=== PATIENT | female | born 1950 | race Caucasian/White ===

== ENCOUNTER 2020-04-24 13:50 | Outpatient (CLI) | payer MEDICARE, OTHER, SELFPAY ==
--- NOTE | 2020-04-24 13:57 | XR_ITS ---
WS: [id number] SCREENING DEXA SCAN [employer] CLINICAL INFORMATION: POSTMENOPAUSAL COMPARISON: 018 FINDINGS: The L1-L4 bone mineral density measures 1.166 g/cm2. This corresponds to a T score score of -0.1 and Z score of 1.9. Left femoral neck bone mineral density measures 0.801 g/cm2. This corresponds to a T score of -1.6 an d Z score of 0.0. Right femoral neck bone mineral density measures 0.791 g/cm2. This corresponds to a T score -1.7of an d Z score of 0.0. Mean femoral neck bone mineral density measures 0.796 g/cm2. This corresponds to a T score of -1.7 an d Z score of 0.0. XR/XR DEXA axial skeleton* [id number] IMPRESSION: Osteopenia. Patient's FRAX calculated 10 year probability for major osteoporotic fracture i s 10.5 % and osteoporotic hip fracture is 2.0%.
== END 2020-04-24 13:51 | disposition home or self-care (01) ==
LOC: RADWPI 13:57
PROVIDERS: Family Provider Family Medicine; PCP Family Medicine; Visit Provider Family Medicine
DX: Z78.0 Asymptomatic menopausal state (principal); M85.89 Other specified disorders of bone density and structure, multiple sites
CPT/HCPCS: 77080

== ENCOUNTER 2021-07-15 15:11 | Emergency (ER) | payer MEDICARE, OTHER, SELFPAY ==
[2021-07-15 15:32] VITALS: BP 153/72; RESP 20; TEMP 36.9; O2SAT 98; BMI 21.2
--- NOTE | 2021-07-15 17:42 | W.ED.BURNSMK ---
HPI - Burn/Smoke Inhalation General: Chief complaint: Burn/Smoke Inhalation Stated complaint: RIGHT HAND BURN Time Seen by Provider: 07/15/21 17:42 History of Present Illness: HPI Narrative: 71-year-old female comes in with injury to the right hand. Patient had reached in the oven to grab out a krueger that was sitting in it but it had became hot from the oven. Patient has blistered howard to the fingers of the right hand in the thenar area of the right hand. Patient reports pain is controlled with cool rag. Patient appears well. Patient's last tetanus shot was 2 years ago. Patient denies any diabetes. Review of Systems General: Reports: 10 or more systems reviewed and unremarkable except in HPI and below Skin/Breast: Reports: other (Burn right hand.) Physical Exam Const: COMMON NORMALS: no acute distress and patient oriented x3 GENERAL APPEARANCE: cooperative HENMT: COMMON NORMALS: normocephalic and Normal external nose present HEAD & SCALP: normal to inspection and normocephalic NOSE: Normal external nose present MOUTH: Normal oral and palatal mucosa present Eye: GENERAL EYE: appearance normal, both eyes and all related structures Neck/C-Spine: COMMON NORMALS: full ROM Chest: COMMONS NORMALS: normal inspection of the chest Resp: COMMON NORMALS: normal respiratory effort EFFORT & INSPECTION: Yes able to speak in complete sentences Cardio: COMMON NORMALS: regular rate and regular rhythm RATE: regular rate RHYTHM: regular rhythm GI: COMMON NORMALS: non-tender : COMMON NORMALS: Yes no CVA tenderness BLADDER/KIDNEY EXAM: Yes no CVA tenderness Back/Pelvis: COMMON NORMALS: no CVA tenderness and thoracic and lumbar spine normal to inspection Extremity: COMMON NORMALS: normal to inspection Neuro: COMMON NORMALS: patient oriented x3 and moves all extremities Psych: COMMON NORMALS: mental status grossly normal and cooperative Skin: NARRATIVE SKIN EXAM: Blistered lesions are noted to the pads of the fingers of the right hand. Patient also has a blister to the thenar area of the right hand. Patient has good range of motion of the digits. Minimal swelling is noted. Course Vital Signs: Vital signs: Vital Signs Temperature 98.4 F 07/15/21 15:32 Respiratory Rate 20 H 07/15/21 15:32 Blood Pressure 153/72 07/15/21 15:32 Pulse Oximetry 98 07/15/21 15:32 MDM - Burn/Smoke Inhalation MDM Narrative: Medical decision making narrative: Patient comes in today with howard to the right hand. On exam we note superficial partial-thickness howard to the pads of the digits of the right hand and the thenar region. Patient has good range of motion of the hand. Minimal swelling is noted. Differential diagnosis includes but not limited to need for tetanus vaccination, superficial thickness howard, concern for scarring and decreased range of motion of the hand. Patient be started on bacitracin ointment to the hand twice a day with dressing changes. Tetanus shot was up-to-date. Patient needs follow-up with primary care in 2 to 3 days for recheck and then possible wound care specialty for further treatment. Patient reports understanding of care plan and need for follow-up or return to the ER. Discharge Plan Discharge Patient Disposition: Home Clinical Impression: Partial thickness burn of hand Qualifiers: Encounter type: initial encounter Burn of hand location: palm Laterality: right Qualified Code(s): T23.251A - Burn of second degree of right palm, initial encounter Condition: Stable Prescriptions: New bacitracin 500 unit/gram ointment 1 applic topical BID Qty: 28 RF: 0 hydrocodone-acetaminophen 5-325 mg tablet 1 tab PO Q6H PRN (Reason: pain (scale score 7-10)) Qty: 6 RF: 0 Discharge Orders: Discharge ED (Routine); Ordered 07/15/21 Ordered By: Michele Poe Referrals: Akila Quintero MD [Primary Care Provider] - Discharge Diet: Usual diet Discharge Activity: Increase activity as tolerated Patient Instructions: Partial Thickness Burn (ED), Opioid Safety Activity Restrictions/Additional Instructions: Use ice pack to the hand on and off for pain control. Keep wound covered. Use acetaminophen or ibuprofen for control of pain. Follow-up with primary care in 3 days for recheck. Return to the ER for high fever or new concerns. Coding Level of Care Code ED Supervisor [employer] for Angela Goodman
== END 2021-07-15 18:24 | disposition home or self-care (01) ==
PROVIDERS: Emergency Provider Nurse Practitioner Family; PCP Family Medicine
DX: T23.251A Burn of second degree of right palm, initial encounter (principal); X19.XXXA Contact with other heat and hot substances, initial encounter
CPT/HCPCS: 99281; A6446

== ENCOUNTER 2022-04-06 09:58 | Outpatient (CLI) | payer MEDICARE, OTHER, SELFPAY ==
--- NOTE | 2022-04-06 10:09 | XR_ITS ---
WS: [id number] Exam: XR lumbar spine 2-3V* [id number] Date/Time of Exam: 04/06/2022 10:14 AM Reason For Exam: PAIN IN R LEG No acute fracture or dislocation. There is spondylosis. Facet arthropathy at L4-5 and L5-S1. Disc spa zara are relatively well maintained. Mild dextroscoliosis. XR/XR lumbar spine 2-3V* [id number] IMPRESSION: 1. Degenerative changes and mild dextroscoliosis. 2. No fracture or malalignment.
--- NOTE | 2022-04-06 10:17 | XR_ITS ---
WS: [id number] Exam: XR hip RT 2-3V wo/w pel* [id number] Date/Time of Exam: 04/06/2022 10:17 AM Reason For Exam: PAIN IN RIGHT LEG No acute fracture or dislocation. Advanced osteoarthritis with joint space narrowing. Subcortical cys t formation in the acetabulum and femoral head. Marginal osteophytes along the femoral head and aceta bulum. Soft tissues are normal in appearance. XR/XR hip RT 2-3V wo/w pel* [id number] IMPRESSION: 1. Advanced osteoarthritis. No fracture or dislocation.
== END 2022-04-06 09:59 | disposition home or self-care (01) ==
LOC: RAD 10:04
PROVIDERS: PCP Family Medicine; Visit Provider Family Medicine
DX: M79.604 Pain in right leg (principal)
CPT/HCPCS: 72100; 73502

== ENCOUNTER 2022-06-24 12:57 | Outpatient (CLI) | payer MEDICARE, OTHER, SELFPAY ==
--- NOTE | 2022-06-24 13:06 | XR_ITS ---
WS: [id number] DEXA (DUAL ENERGY X-RAY ABSORPTIOMETRY) Bone mineral density was performed using a [employer] machine. HISTORY: POSTMENOPAUSAL COMPARISON: 04/24/2020 Lumbar spine BMD (L1-L4): 1.083 g/cm2 T score: -0.8 Z score: 1.1 Total hip BMD: Left: 0.748 g/cm2. T score: -2.1 Z score: -0.3 Right: 0.710 g/cm2. T score: -2.4 Z score: -0.6 10 year probability of a major osteoporotic fracture is 12.3%. Compared to the prior study from 04/24/2020. Lumbar spine bone mineral density has decreased by 7.1%. Bilateral hips bone mineral density has decreased by 8.4%. XR/XR DEXA axial skeleton* [id number] IMPRESSION: OSTEOPENIA based upon the WHO classification for females. Significant decrease in bone mineral density in the lumbar spine and hips since the prior study.
== END 2022-06-24 12:58 | disposition home or self-care (01) ==
LOC: RAD 12:58
PROVIDERS: PCP Family Medicine; Visit Provider Family Medicine
DX: Z78.0 Asymptomatic menopausal state (principal); M85.80 Other specified disorders of bone density and structure, unspecified site
CPT/HCPCS: 77080

== ENCOUNTER 2022-10-13 10:26 | Outpatient (CLI) | payer MEDICARE, OTHER, SELFPAY ==
--- NOTE | 2022-10-13 10:45 | XR_ITS ---
WS: [id number] Left hip, 2 views, 10/13/2022 Clinical Data: PAIN IN LEFT HIP Comparison: None. Findings: No fractures or dislocations are seen. The hip joint is intact. The soft tissues are not remarkable. The adjacent pelvis is normal. XR/XR hip LT 2-3V wo/w pel* [id number] Impression: Negative left hip. Tonnis classification: grade 0: normal radiographs
== END 2022-10-13 10:27 | disposition home or self-care (01) ==
PROVIDERS: PCP Family Medicine; Visit Provider Family Medicine
DX: M25.552 Pain in left hip (principal)
CPT/HCPCS: 73502

== ENCOUNTER → 2024-06-15 13:52 | Outpatient (BNVA) | payer MEDICARE, OTHER, SELFPAY | PROVIDERS: PCP Family Medicine; Visit Provider Podiatrist Foot & Ankle Surgery | DX: L84 Corns and callosities (principal) | CPT/HCPCS: 99203 ==

== ENCOUNTER → 2024-08-10 13:18 | Outpatient (BNVA) | payer MEDICARE, OTHER, SELFPAY | PROVIDERS: PCP Family Medicine; Visit Provider Podiatrist Foot & Ankle Surgery | DX: L84 Corns and callosities (principal) | CPT/HCPCS: 99213 ==

== ENCOUNTER → 2024-09-28 14:30 | Outpatient (BNVA) | payer MEDICARE, OTHER, SELFPAY | PROVIDERS: PCP Family Medicine; Visit Provider Podiatrist Foot & Ankle Surgery | DX: L84 Corns and callosities | CPT/HCPCS: 99213 ==

== ENCOUNTER 2024-12-12 13:11 | Outpatient (CLI) | payer MEDICARE, OTHER, SELFPAY ==
--- NOTE | 2024-12-12 13:17 | XR_ITS ---
WS: [id number] SCREENING DEXA SCAN [employer] CLINICAL INFORMATION: ASYMPTOMATIC POSTMENOPAUSAL COMPARISON: None. FINDINGS: The L1-L4 bone mineral density measures 1.106 g/cm2. This corresponds to a T score score of -0.6 and Z score of 1.3. Left femoral neck bone mineral density measures 0.770 (g/cm2). This corresponds to a T score of -1.9 (no units) and Z score of -0.1 (no units). LEFT forearm bone mineral density measures 0.68. This corresponds to a T score - 2.3 of and Z score of -0.1. XR/XR DEXA axial skeleton* [id number] IMPRESSION: Normal bone mineralization lumbar spine. Osteopenia LEFT femur. Osteopenia LEFT forearm. Patient's FRAX calculated 10 year probability for major osteoporotic fracture i s 12.0% and osteoporotic hip fracture is 2.6%. Bone mineral density lumbar spine increased 2.1% Bone mineral density LEFT femur increased 2.9%
== END 2024-12-12 13:12 | disposition home or self-care (01) ==
LOC: RAD 13:14
PROVIDERS: PCP Family Medicine; Visit Provider Family Medicine
DX: Z78.0 Asymptomatic menopausal state (principal); M85.89 Other specified disorders of bone density and structure, multiple sites
CPT/HCPCS: 77080